=== PATIENT | male | born 2000 | race Caucasian/White ===

== ENCOUNTER 2018-09-07 15:36 | Emergency (ER) | payer OTHER ==
[2018-09-07 15:40] VITALS: BP 142/75
--- NOTE | 2018-09-07 16:39 | XRAY Report ---
Reason: struck knee with another in sports Procedure Date: 09/07/2018 Accession Number: [id number] / [id number] Procedure: XR - Knee 3 View RT CPT Code: FULL RESULT: EXAM: RIGHT KNEE RADIOGRAPHY EXAM DATE: 09/07/2018 04:19 PM. CLINICAL HISTORY: Struck knee with another in sports. COMPARISON: None available. TECHNIQUE: 3 views. FINDINGS: Bones: No acute fracture or dislocation. Joints: No joint effusion. Joint spaces are preserved. Soft Tissues: Unremarkable. IMPRESSION: Normal knee radiography. [facility]
[2018-09-07] MEDS ORDERED: IBUPROFEN 800 MG TABLET PO STA (17:00)
--- NOTE | 2018-09-07 17:00 | ED Physician Documentation ---
PD HPI LOWER EXT INJURY - Stated complaint Stated Complaint: KNEE INJURY - Chief complaint Chief Complaint: Ext Problem - History obtained from History obtained from: Patient - History of Present Illness PD HPI LOW EXT INJURY LOCATION: Right, Knee Type of injury: Blunt / blow Where injury occurred: Other (Volleyball court.) Timing - onset: How many hours ago (2) Similar symptoms before: Has not had sx before - Additional information Additional information: The patient is a 17-year-old [employer] male, who was playing volleyball when he and another player both jumped for the ball at the net, and the other player impacted the patient's right knee at its lateral aspect. He has had pain in his knee since that time, worsening with ambulation. The incident occurred about 2 hours prior to arrival. He denies any prior history of knee injury. Review of Systems Respiratory: denies: Dyspnea GI: denies: Nausea, Vomiting Skin: denies: Abrasion (s) Musculoskeletal: reports: Joint pain (Right knee.). denies: Back pain Neurologic: denies: Focal weakness, Numbness, Head injury PD PAST MEDICAL HISTORY - Past Medical History Past Medical History: No Endocrine/Autoimmune: None Musculoskeletal: None - Past Surgical History Past Surgical History: Yes - Present Medications Home Medications: Ambulatory Orders Medication Instructions Recorded Confirmed No Known Home Medications 09/07/18 09/07/18 - Allergies Allergies/Adverse Reactions: Allergies Allergy/AdvReac Type Severity Reaction Status Date / Time No Known Drug Allergies Allergy Verified 09/07/18 15:40 - Social History Does the pt smoke?: No Smoking Status: Never smoker Does the pt drink ETOH?: No Does the pt have substance abuse?: No - Immunizations Immunizations are current?: Yes PD ED PE NORMAL - Vitals Vital signs reviewed: Yes (Borderline systolic hypertension initially.) - General General: Alert and oriented X 3, Well developed/nourished - HEENT HEENT: Atraumatic - Neck Neck: No bony TTP - Respiratory Respiratory: No respiratory distress - Back Back: No spinal TTP - Derm Derm: No rash - Extremities Extremities: No edema, No calf tenderness / cord, Other (There is tenderness to palpation along the medial joint line of the right knee. There is no tenderness in the popliteal fossa or along the lateral joint line. There is no appreciable effusion. He is able to fully extend the knee and can flex it to 90 degrees. There is no ligamentous instability detected. Distal neurovascular is intact.) - Neuro Neuro: Alert and oriented X 3, No motor deficit, No sensory deficit Results - Vitals Vitals: Oxygen O2 Source Room air - Rads (name of study) Right knee Radiology: Prelim report reviewed, EMP read contemporaneously, See rad report (Normal knee radiography.) PD MEDICAL DECISION MAKING - ED course Complexity details: reviewed results, re-evaluated patient, considered differential, d/w patient, d/w family ED course: The patient's presentation is most consistent with medial collateral ligament strain of the right knee. There is no bony abnormality detected on radiographic imaging. Treatment in the emergency department included administration of ibuprofen 800 mg orally, and application of a knee immobilizer. I discussed with him and his the expected course of injury, symptomatic treatment and outpatient follow- up, as well as potentially worrisome signs or symptoms that should prompt reevaluation in the emergency department. Departure - Departure Disposition: 01 Home, Self Care Clinical Impression: Medial collateral ligament sprain of knee Qualifiers: Encounter type: initial encounter Laterality: right Qualified Code(s): S83.411A - Sprain of medial collateral ligament of right knee, initial encounter Condition: Stable Instructions: ED Sprain Knee Collateral Ligaments Follow-Up: GUZMAN Chun [Provider Group] Comments: Apply ice pack to your knee intermittently for the next 3 days. Use the knee immobilizer if it provides comfort. You can use ibuprofen, up to 800 mg 3 times daily. Follow-up with your primary physician within 1 week. Call to schedule appointment. Return to the emergency department if you develop increasing pain or swelling of your knee, or otherwise worsening symptoms. Discharge Date/Time: 09/07/18 17:38
== END 2018-09-07 17:38 | disposition home or self-care (01) ==
LOC: ED 15:36
DX: S83.411A Sprain of medial collateral ligament of right knee, initial encounter (principal); W50.0XXA Accidental hit or strike by another person, initial encounter; Y93.68 Activity, volleyball (beach) (court); Y92.318 Other athletic court as the place of occurrence of the external cause
CPT/HCPCS: 73562; 99283; A9270

== ENCOUNTER 2018-10-05 18:26 | Outpatient (CLI) | payer OTHER ==
--- NOTE | 2018-10-06 11:41 | MRI Report ---
Reason: SPRAIN IN UNSPECIFIED SITE OF RIGHT KNEE,INITIAL E Procedure Date: 10/05/2018 Accession Number: [id number] / [id number] Procedure: MRI - Knee RT W/O CPT Code: FULL RESULT: EXAM: RIGHT KNEE MRI WITHOUT CONTRAST EXAM DATE: 10/05/2018 07:59 PM. CLINICAL HISTORY: Right knee pain post injury. COMPARISON: KNEE 3 VIEW RT 09/07/2018 4:07 PM. TECHNIQUE: Multiplanar, multisequence T1-weighted and fluid-sensitive sequences of the knee without contrast. Other: None. FINDINGS: Bones: There is high T2 signal in the posterior lateral tibial condyle, and the middle of the lateral femoral condyle. There is focal flattening and concavity of the overlying cortex. The findings are suggestive of an osteochondral injury of the femur and a contusion of the tibia. There is a contusion of the posterior margin of the medial tibial condyle. Articular Cartilage: Unremarkable. Medial Meniscus: The medial meniscus is intact. Lateral Meniscus: The lateral meniscus is intact. Cruciate Ligaments: There is a complete rupture of the ACL. The PCL appears unremarkable. Collateral Ligaments: There is high T2 signal in the medial collateral ligament suggesting a grade 1 sprain. The lateral collateral ligament is intact. Tendons: The quadriceps, patellar, semimembranosus, and popliteus tendons are unremarkable. Musculature: No edema or fatty atrophy. Other: There is a large joint effusion. No popliteal cyst. No loose bodies. The medial and lateral retinacula are intact. The subcutaneous tissues and fat pads are unremarkable. IMPRESSION: 1. Osteochondral injury of the lateral femoral condyle with a contusion of the posterior margin of the lateral tibial condyle. Small contusion of the posterior margin of the medial tibial condyle. 2. Grade 3 tear of the ACL. 3. Possible grade 1 sprain of the medial collateral ligament. 4. Large joint effusion. [facility] MUSCULOSKELETAL RADIOLOGY SECTION
== END 2018-10-05 18:27 | disposition home or self-care (01) ==
LOC: DI 18:26
PROVIDERS: ATTEND General Practice
DX: S80.11XA Contusion of right lower leg, initial encounter (principal); S83.511A Sprain of anterior cruciate ligament of right knee, initial encounter; M25.461 Effusion, right knee

== ENCOUNTER 2019-01-07 07:18 | Day surgery (SDC) | payer OTHER ==
[2019-01-07] MEDS ORDERED: CEFAZOLIN SODIUM IN 0.9 % NACL 2 GM/100 ML BAG IV ONE (07:26)
[2019-01-07] MEDS ORDERED: EPINEPHrine 1 MG/ML AMP ONE (07:27)
[2019-01-07] MEDS ORDERED: BUPIVACAINE 0.25% PF 30 ML VIAL ONE (07:28)
--- NOTE | 2019-01-07 07:48 | ANESTHESIA ---
Pre-Anesthesia VS, & Labs - Diagnosis right ACL and meniscal tears - Procedure right ACL repair, knee arthroscopy Vital Signs: Temp Pulse Resp BP Pulse Ox 36.2 C L 68 16 139/60 H 96 01/07/19 07:42 01/07/19 07:42 01/07/19 07:42 01/07/19 07:42 01/07/19 07:42 Height 6 ft Weight (kg) 107.05 kg Body Mass Index 33.5 - NPO >8 hours Home Medications and Allergies Home Medications: Ambulatory Orders Clindamycin Phos/Benzoyl Perox [Clindamycin-Benzoyl Perox 1-5%] 25 gm TP 12/30/18 Ibuprofen [Motrin] 600 mg PO Q6H PRN 12/30/18 Clindamycin Phos/Benzoyl Perox [Clindamycin-Benzoyl Perox 1-5%] 25 gm TP 12/30/18 Ibuprofen [Motrin] 600 mg PO Q6H PRN 12/30/18 Allergies/Adverse Reactions: Allergies Allergy/AdvReac Type Severity Reaction Status Date / Time nickel Allergy Rash Verified 12/30/18 13:46 Anes History & Medical History - Anesthetic History Anesthesia Complications: reports: No previous complications - Medical History Cardiovascular: reports: None Pulmonary: reports: None Gastrointestinal: reports: None Urinary: reports: None Musculoskeletal: reports: Other Endocrine/Autoimmune: reports: None Skin: reports: None Smoking Status: Never smoker - Surgical History Orthopedic: Other (ankle surgery) Exam General: Alert Dental: WNL, Other (left front tooth was repaired) Mouth Openin Fingerbreadth (FB) Mallampati classification: I Respiratory: Lungs clear Cardiovascular: Regular rate Mental/Cognitive Status: Alert/Oriented X3 Plan Anesthesia Type: General, Femoral Block Consent for Procedure(s) Verified and Reviewed: Yes Code Status: Attempt Resuscitation ASA classification: 1-Healthy patient Is this case an emergency?: No
[2019-01-07] MEDS ORDERED: LACTATED RINGERS 1,000 ML IV ONE ×2 (07:54→11:11)
[2019-01-07] MEDS ORDERED: ACETAMINOPHEN 1,000 MG/100 ML 100 ML IV ONE (09:00)
[2019-01-07] MEDS ORDERED: PROPOFOL 200 MG/20 ML VIAL IVP ONE (09:00)
[2019-01-07] MEDS ORDERED: ONDANSETRON 4 MG/2 ML VIAL IVP ONE (09:00)
[2019-01-07] MEDS ORDERED: fentaNYL 100 MCG/2 ML VIAL IVP ONE (09:00)
[2019-01-07] MEDS ORDERED: ROPIVACAINE 0.2% PF 20 ML AMPULE SUBQ ONE (09:00)
[2019-01-07] MEDS ORDERED: DEXAMETHASONE 4 MG/ML VIAL IVP ONE (09:00)
[2019-01-07] MEDS ORDERED: MIDAZOLAM 2 MG/2 ML VIAL IVP ONE (09:00)
[2019-01-07] MEDS ORDERED: KETOROLAC 30 MG/ML VIAL IVP ONE (09:00)
[2019-01-07] MEDS ORDERED: SODIUM CHLORIDE 0.9% 10 ML VIAL IV ONE (09:00)
[2019-01-07] MEDS ORDERED: BUPIVACAINE 0.25% PF 30 ML VIAL SUBQ ONE ×2 (09:33)
[2019-01-07] MEDS ORDERED: ONDANSETRON 4 MG/2 ML VIAL IVP PRN (11:41)
[2019-01-07] MEDS ORDERED: oxyCODONE 5 MG TABLET PO PRN (11:41)
[2019-01-07] MEDS: fentaNYL 100 MCG/2 ML VIAL ONE ×2 (11:59→12:04)
--- NOTE | 2019-01-07 12:06 | OPERATIVE REPORT ---
Operative Report - General Procedure Date: 01/07/19 Planned Procedure: Right arthroscopic assisted ACL reconstruction with hamstring autograft Pre-Op Diagnosis: Right anterior cruciate ligament tear Procedure Performed: Right arthroscopic assisted ACL reconstruction with hamstring autograft Post Op Diagnosis: Right anterior cruciate ligament tear - Procedure Note Primary Surgeon: SUSHMA PATEL Secondary Surgeon: LETICIA PRASAD Anesthesia Technique: General LMA Estimated Blood Loss (mL): 5 Complications: Diagnostic Arthroscopy: No loose bodies. Synovium normal-appearing. Patella cartilage normal. Trochlear cartilage normal. Medial femoral condyle cartilage grade 2-3 changes in approximately 5 mm medial lateral by 15 mm anterior to posterior area of the medial femoral condyle. Medial tibial plateau cartilage normal. Medial meniscus root intact, no tears. ACL was torn, largely scarred to the PCL, with a few fibers laterally attaching to the origin PCL was intact. Lateral femoral condyle cartilage normal. Lateral tibial plateau cartilage normal. Lateral meniscus normal. Tourniquet: Right thigh 250 mmHg, approximately 118 minutes Implants: Femur: Arthrex BTB tight rope Tibia: Arthrex Graft Premier 9 x 30 mm Procedure in Detail: The patient was met in the pre-operative hold area on the day of the procedure. The operative extremity was signed and questions were answered. The patient was brought to the operating room and a general anesthe tic was administered. Supine position was used and bony prominences were padded. An examination under anesthesia was performed. A well-padded tourniquet was placed on the right side . Standard prepping and draping was performed. A time out confirmed patient identification, laterality, procedure, allergies, antibiotics, and images. Following timeout the operative extremity was elevated and exsanguinated using an Esmarch bandage. The tourniquet was inflated to 250 mmHg. A 4 cm incision was made over the insertion of the pes anserine. Hemostasis was obtained with electrocautery. Dissection was brought down to the sartorial fascia and this was cleared off with a sponge. A partial thickness incision was made in the sartorial fascia 5mm proximal to and in line with the gracilis tendon, taking care to not disrupt the superficial medial collateral ligament. A full thickness longitudinal incision was made down to bone, releasing the pes anserine. I then identified the interval between the hamstring tendons and the medial collateral ligament. This interval was exploited and the hamstrings were viewed on the underside of the sartorial fascia. A right angle clamp was used to separate the gracilis tendon from the sartorial fascia and it was released sharply with a knife. I then whip stitched the tendon with 4 bites up and down using Arthrex fiber loop. I then freed the tendon from all fascial attachments back to the hiatus. A closed tendon stripper was then used to harvest the gracilis tendon and it was brought to the back table. The procedure was repeated for the semitendinosis tendon. The graft was then prepped on the back table. The quadrupled graft passed tightly through an 8 mm tunnel. A standard diagnostic arthroscopy of the knee was performed through honorio lateral and anteromedial portal sites. The anteromedial portal was created under direct visualization after localizing with a spinal needle. The findings can be found above. I then used a sucker shaver and a radiofrequency ablation wand to release all residual ACL tissue off of the lateral wall. I debrided all excess tissue from the notch. I placed the camera into the anteromedial portal and ensured that I was cleared all the way to the back wall. I then brought the flip cutter aiming device through the lateral portal. I positioned into the central position of the capitan grande band ACL footprint on the femur ensuring to leave a 2 mm back wall and stay off of the distal articular cartilage. Once satisfied with the position, the bullet was brought down to the skin and a destini was made. A 3 cm longitudinal skin incision was made and the IT band was split in line with its fibers. A marvin rake was used to retract the IT band and the bullet was brought down to the lateral femoral wall. An appropriately sized flip cutter was then drilled into the notch. It was then flipped and the lateral wall was scored confirming an appropriate position. The bullet was then malleted into place and a 25mm femoral tunnel was drilled. Bony debris was removed with a shaver. A fiberstick suture was brought into the joint, retrieved out the lateral portal, and clamped to itself. I then identified the ACL footprint on the tibia and set the tibial guide at 55. I aimed to have the guide pin come out in the center of the capitan grande band footprint and in line with the posterior borders of the anterior horn of the lateral meniscus, on the lateral border of the medial tibial spine. The guidewire was then brought into the joint. The knee was then straightened to confirm that it would not impinge on the notch. The guidewire was clamped with a Aaron. The skin was then protected and the tibial tunnel was drilled with an 8 mm reamer. The fiberwire was then brought through the tibial tunnel. The graft was then loaded onto the tightrope and the graft was marked at 25 mm. The graft was then passed and the button was brought out of the skin over the lateral femur. I then guided the button back down beneath the IT band and visualized it on the lateral femoral cortex. I then held tension on the graft and advanced it by pulling on the white tightrope sutures. The marking on the graft disappeared into the femoral tunnel and seated nicely. The knee was then cycled 20 times with tension on the graft. I then placed a large bump under the distal femur the pulled on the graft and placed a posterior drawer on to the proximal tibia. The knee was then cycled and placed into 30 degrees of flexion and an nitinol wire was passed and the tibial tunnel was dilated sequentially to 9 mm. A 9 x 30 mm graft bolt was then placed in standard fashion. A Jesus was performed and was 1A. The scope was reinserted in the knee and there was no prominent hardware. The tension on the graft was appropriate. There was no notch impingement. The tightrope was checked by retightening, followed by 3 alternating half hitches for backup fixation. The excess limbs of suture were then trimmed. Excess tendon was trimmed at the tibial surface. All wounds were copiously irrigated with normal saline and we began our closure. The IT band was closed with 0 Vicryl suture. The sartorial fascia was repaired using 0 Vicryl. Subcutaneous tissues were closed with 2-0 Vicryl. Skin was closed with a running buried 3-0 Monocryl. 30 mL's of quarter percent Marcaine plain was injected into the mil-incisional soft tissues . The wounds were then cleaned and dried, and covered with Xeroform. Sterile gauze was placed over the incisions followed an ABD and THEO stocking. The surgical drapes were removed. The ROM brace was placed and was locked out in full extension. Anesthesia placed an ultrasound-guided femoral nerve block, for postoperative pain control. He was awakened and transferred to the recovery room. Postoperative plan: 1. Discharge home from the same day surgery facility once discharge criteria has been met. 2. NWB, knee locked in extension until follow-up. 3. Will follow postoperative ACL rehabilitation protocol. Anticipate in-line running activities at 5 months postop, cutting and pivoting activities at 6 months postop. 4. Return to clinic next week for wound check. 5. Full strength aspirin 30 days for DVT prophylaxis.
[2019-01-07] MEDS: HYDROmorphone 1 MG/ML CARPUJECT ONE ×2 (12:13→12:25)
[2019-01-07] MEDS ORDERED: METOCLOPRAMIDE 10 MG/2 ML VIAL ONE (12:43)
[2019-01-07] MEDS ORDERED: LACTATED RINGERS 500 ML IV ONE (12:54)
[2019-01-07] MEDS ORDERED: oxyCODONE 5 MG TABLET ONE (13:48)
[2019-01-07 14:41] VITALS: BP 146/65
== END 2019-01-07 07:19 | disposition home or self-care (01) ==
LOC: SDS 07:18
PROVIDERS: ATTEND Orthopaedic Surgery
PROC: 0LBL0ZZ Excision of Right Upper Leg Tendon, Open Approach (ICD-10-PCS; 2019-01-07)
PROC: 0MRN47Z Replacement of Right Knee Bursa and Ligament with Autologous Tissue Substitute, Percutaneous Endoscopic Approach (ICD-10-PCS; principal; 2019-01-07 08:45)
DX: S83.511A Sprain of anterior cruciate ligament of right knee, initial encounter (principal); Z91.19 Patient's noncompliance with other medical treatment and regimen; Z83.2 Family history of diseases of the blood and blood-forming organs and certain disorders involving the immune mechanism; Z91.09 Other allergy status, other than to drugs and biological substances
CPT/HCPCS: 29888; A9270; C1713; J0131; J0690; J1170; J2765; J7120